=== PATIENT | female | born 2005 | race Two or more races ===

== ENCOUNTER 2024-12-08 16:54 | Emergency (ER) | payer OTHER, SELFPAY ==
[2024-12-08 17:17] VITALS: BP 130/83; PULSE 98; RESP 24; TEMP 36.3; O2SAT 97; BMI 31.8
--- NOTE | 2024-12-08 17:55 | ED_ITS ---
HPI - General Adult General Chief complaint: Shortness of Breath/Dyspnea Stated complaint: trouble breathing Time Seen by Provider: 12/08/24 17:45 Source: patient Mode of arrival: ambulatory Limitations: no limitations History of Present Illness HPI narrative: 19-year-old female with a history of reactive airway disease presents to the emergency department with a 3 day history of upper respiratory infection sympt oms, no cough. Having a little bit of chest tightness and lateral osullivan. Was evaluated in her clinic at school earlier today. Was told that things seem benign, was given nebulizer treatment in the office. She says that initially helped a little bit seems to have worn off. She was given an inhaler and has used this a few times. There is no hemoptysis, no fever, no severe shortness of breath. No history DVT or PE. No history of cardiac issues. Has not tried other treatments. Outpatient COVID and influenza test negative. Tightness is bilateral. Reports history of anxiety disorder, home meds are oral contraceptive and does venlafaxine. No known drug allergies. ROS is notable for the upper respiratory infection symptoms only, otherwise denies times 12 systems. Related Data Home Medications ?Medication ?Instructions ?Recorded ?Confirmed desvenlafaxine succinate 100 mg 100 mg PO DAILY 12/08/24 tablet,extended release 24 hr famotidine 40 mg tablet 40 mg PO DAILY PRN 11/24/24 11/24/24 Previous Rx's ?Medication ?Instructions ?Recorded norethindrone 1.5 mg-ethinyl 1 tab PO QDAY #84 tabs estradiol 30 mcg(21)/iron 75 mg(7) tablet ( (28)) Allergies Allergy/AdvReac Type Severity Reaction Status Date / Time No Known Drug Allergies Allergy Verified 11/24/24 08:57 [facility] Medical History Encounter for IUD insertion ?Z30.430 - Encounter for insertion of intrauterine contraceptive device (ICD- 10) Asthma ?J45.909 - Unspecified asthma, uncomplicated (ICD-10) Surgical History History of tonsillectomy ?Z90.89 - Acquired absence of other organs (ICD-10) Social History Narrative: Student at [employer] History major/premed Nonsmoker, no alcohol use, no illicit drug use Exam Const: Vital Signs, click to edit/add: Vital Signs - 24 hr 12/08/24 17:17 Temperature 97.3 F L Pulse Rate [Pulse Oximeter] 98 Respiratory Rate 24 Blood Pressure [Ri ght Upper Arm] 130/83 Pulse Oximetry 97 Oxygen Delivery Me thod Room Air Documenting provider has reviewed patient's vital signs: yes Common normals: no apparent distress General appearance: well kempt HENMT: Common normals: normocephalic and moist oral mucous membranes Head and scalp: normocephalic Face and sinus: normal facial exam Mouth: oral and palatal mucosa normal Throat: posterior oropharynx normal Other: Mild clear mucus rhinorrhea noted. Eye: Common normals: conjunctivae normal Conjunctiva: conjunctiva(e) normal Neck & C-Spine: Common normals: full ROM and no lymphadenopathy Resp: Common normals: normal respiratory effort, no use of accessory muscles and clear to auscultation bilaterally Effort & inspection: able to speak in complete sentences Auscultation: clear to auscultation bilaterally Cardio: Common normals: regular rate, regular rhythm, S1 normal heart sound, S2 normal heart sound and no murmurs Rate: regular rate Rhythm: regular rhythm Heart sounds: S1 normal and S2 normal Psych: Common normals: speech normal Appearance: well kempt Attitude: engaged Activity/motor behavior: appropriate eye contact Speech: normal speech Mood and affect: euthymic mood Insight: insight good Judgement: judgment good Skin: Common normals: no rashes or lesions noted General skin exam: no rashes or lesions noted Course Course ED Course: 19-year-old female with respiratory infection symptoms. There is no wheezing on exam. There is no hypoxia, tachypnea or tachycardia. There are no indications to suspect pulmonary embolism, pneumonia, heart failure, severe asthma exacerbation. Counseled patient on findings. Symptoms are likely to last another 5-10 days. Continue use of the inhaler p.r.n.. Okay to use Tylenol and/or ibuprofen for mild discomfort. Continue her medications as prescribed. I do not hear any wheezing, therefore I do not recommend adding a steroid, she is unlikely to benefit from this and also is likely to have side effects. Alarm symptoms reviewed that would warrant coming to the emergency room again. Written instructions provided. Vital Signs Vital signs: Initial Vital Signs Temperature 97.3 F L 12/08/24 17:17 Temperature Source Temporal Artery Scan 12/08/24 17:17 Pulse Rate 98 12/08/24 17:17 Respiratory Rate 24 12/08/24 17:17 Blood Pressure 130/83 12/08/24 17:17 Blood Pressure Mean 98 12/08/24 17:17 Blood Pressure Position Sitting 12/08/24 17:17 Pulse Oximetry 97 12/08/24 17:17 Oxygen Delivery Method Room Air 12/08/24 17:17 Vital Signs Temperature 97.3 F L 12/08/24 17:17 Pulse Rate 98 12/08/24 17:17 Respiratory Rate 24 12/08/24 17:17 Blood Pressure 130/83 12/08/24 17:17 Pulse Oximetry 97 12/08/24 17:17 Oxygen Delivery Method Room Air 12/08/24 17:17 Temperature 97.3 F L 12/08/24 17:17 Pulse Rate 98 12/08/24 17:17 Respiratory Rate 24 12/08/24 17:17 Blood Pressure 130/83 12/08/24 17:17 Pulse Oximetry 97 12/08/24 17:17 Oxygen Delivery Method Room Air 12/08/24 17:17 Discharge Plan Discharge Clinical Impression: Acute upper respiratory infection Patient Disposition: Home w/ Parent or Adult Condition: Stable Instructions: Upper Respiratory Infection (DC) Additional Instructions: As we discussed, your lungs sound great and there are no signs of low oxygen levels or other abnormalities. You do seem to have evidence of a mild upper respiratory infection but no signs of any serious complications. I do not recommend further workup. Symptoms are likely to last for 5-10 days. He should come to the emergency room if you have severe shortness of breath to the point where you can not ambulate from her bed to the bathroom, your coughing up large amounts of blood, or you have persistent fevers over 100.4 for multiple days. It is okay to use Tylenol and/or ibuprofen for mild discomfort and keep using your inhaler for that chest tightness. I do not think that we need to add steroids at this point because I do think the you will have unwanted side effects due to your history of anxiety. I do not recommend additional testing for other viruses, as you have been symptomatic for enough days that the antiviral medicines are likely to be more harmful than helpful. Follow-up in the clinic if her symptoms are not improving in 10 more days. You are cleared to return to school, work and all other duties at this time. Activity Level: No Restrictions Discharge Diet: Regular Prescriptions: No Action norethindrone-e.estradiol-iron [ (28)] 1.5 mg-30 mcg (21)/75 mg (7) tablet 1 tab PO QDAY Qty: 84 3RF famotidine 40 mg tablet 40 mg PO DAILY PRN desvenlafaxine succinate 100 mg tablet extended release 24 hr 100 mg PO DAILY Follow Up/Referrals: Provider,Not a Local [Primary Care Provider, Family Practice] Stand Alone Forms: fluid Operations Info Instructions
== END 2024-12-08 18:27 | disposition home or self-care (01) ==
LOC: ED 18:02
PROVIDERS: Emergency Provider Family Medicine
DX: J06.9 Acute upper respiratory infection, unspecified (principal)
CPT/HCPCS: 99283